=== PATIENT | female | born 1985 | race Caucasian/White ===

== ENCOUNTER 2018-09-23 10:40 | Day surgery (SDC) | payer OTHER ==
[2018-09-23] VITALS (7 sets, daily range): BP systolic 88–133; BP diastolic 55–70; PULSE 48–71; TEMP 98–98.1
[~2018-09-23] VITALS: Ht 160 cm; Wt 79.6 kg
[2018-09-23] MEDS ORDERED: PROBIOTIC FORMU1 CAP PO (11:03)
== END 2018-09-23 13:43 | disposition home or self-care (01) ==
LOC: SDCO 10:40
DX: K21.9 Gastro-esophageal reflux disease without esophagitis (principal); K29.30 Chronic superficial gastritis without bleeding; F32.9 Major depressive disorder, single episode, unspecified; K59.00 Constipation, unspecified
CPT/HCPCS: J2250; J3010; J7030